=== PATIENT | female | born 1960 | race Caucasian/White ===

== ENCOUNTER → 2022-06-28 14:04 | Outpatient (BNVA) | payer BC, SELFPAY | PROVIDERS: PCP Physician Assistant; Visit Provider Student in an Organized Health Care Education/Training Program | DX: Z13.89 Encounter for screening for other disorder (principal) ==

== ENCOUNTER 2022-09-25 10:31 | Outpatient (REF) | payer BC, SELFPAY ==
--- NOTE | ~2022-09-25 | XR_ITS ---
EXAMINATION: XR SACROILIAC JOINTS CLINICAL INFORMATION: Low back pain. COMPARISON: None available. TECHNIQUE: 3 views of the sacroiliac joints FINDINGS: Advanced degenerative changes in the bilateral sacroiliac joints with joint space narrowing and hypertrophic change. Degenerative changes on limited views of the lower lumbar spine. Moderate degenerative changes in the bilateral hips with moderate lateral acetabular hypertrophic change/subjacent lucencies and joint space narrowing. Amorphous 1.3 cm sclerotic lesion projecting over the upper aspect of the right iliac wing, possibly a bone island, but of indeterminate etiology. XR/XR sacroiliac joint min 3V IMPRESSION: Advanced degenerative changes in the bilateral sacroiliac joints. Moderate degenerative changes on limited views of the bilateral hips could be evaluated with dedicated images. Amorphous 1.3 cm sclerotic lesion projecting over the upper aspect of the right iliac wing, possibly a bone island, but of indeterminate etiology. Additional imaging with CT scan or MRI should be considered for better visualization as these modalities are much more sensitive for detection of fracture or other underlying pathology.
== END 2022-09-25 10:32 | disposition home or self-care (01) ==
LOC: HO.XRAY 10:31
PROVIDERS: PCP Physician Assistant; Visit Provider Student in an Organized Health Care Education/Training Program
DX: M54.50 Low back pain, unspecified (principal); M06.9 Rheumatoid arthritis, unspecified; Z79.899 Other long term (current) drug therapy
CPT/HCPCS: 72202

== ENCOUNTER 2022-09-25 10:31 | Outpatient (AMB) | payer BC, SELFPAY ==
[2022-09-25 10:51] VITALS: BP 112/66; PULSE 75; TEMP 36.7; O2SAT 95; BMI 27.6
--- NOTE | 2022-09-25 10:51 | A.OFFVIS_ITS ---
Intake Vital Signs 09/25/22 10:51 Height 5 ft 6 in Weight 171 lb 1.259 oz BMI 27.6 BP 112/66 Blood Pressure Location Rt brachial Position Sitting Pulse 75 Pulse Source Pulse Oximeter Temp 98.1 F Temp Source Skin Pulse Oximetry (%) 95 Intake Visit Reasons: PsA Intake Note: Pt seen today for PsA follow up. C/o pain in multiple areas, pain wakes her up at night. 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: No Accompanied by: Self / Same As Patient Allergies No Known Allergies Allergy (Verified 09/25/22 10:52) Medication List - Last Reconciled 09/25/22 by Be Sewell MD albuterol sulfate 90 mcg/actuation (Ventolin HFA) 2 puffs inhalation Q4-6H PRN anastrozole 1 mg PO DAILY fluticasone propionate 220 mcg/actuation (Flovent HFA) 2 puffs inhalation BID folic acid 2 mg (2 x 1 mg) PO DAILY leucovorin calcium 20 mg PO QWEEK lidocaine-prilocaine 2.5-2.5 % grams topical DAILY methotrexate sodium 22.5 mg (9 x 2.5 mg) PO QWEEK prednisone 4 mg PO DAILY HPI HPI Comments History of Present Illness Details 62-year-old female with seronegative arthritis returns for follow-up. She completed radiation therapy for breast cancer 3 weeks ago. She continues to get Herceptin treatment every 3 weeks. She started methotrexate and leflunomide 3 months ago without much improvement. She continues to have diffuse pain. He has pain in her lower back and hips. Mostly at night and running rigger. She has 1-2 hours of morning stiffness in her back. She also has pain in her ankles and hands. She takes ibuprofen 1500 mg daily in the morning and 1500 mg some nights. Initial history: This is a 61-year-old female who presents for for evaluation of a seronegative arthritis. In December 2015 patient 20 the ER due to bilateral Achillis pain and swelling as well as difficulty breathing. She was ultimately evaluated by Pulmonary and had a bronchoscopy, she was diagnosed with BOOP and was advised to take prednisone 2-4 mg daily. She was then evaluated by Rheumatology and she has been on numerous DMARDs she was on Plaquenil which did not provide much relief, methotrexate which also was not very helpful as well as leflunomide. She was on Humira for 6 months without benefit. She was started on Orencia which gave her dramatic relief for about 9 months then it stopped helping. She was switched to Kevzara for 3 months without relief. Then restarted Orencia. She has been taking methotrexate, leflunomide, and Orencia until the end of 2021 when she was diagnosed with breast cancer. 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 She received 3 months of chemotherapy trastuzumab and paclitaxel. She stopped methotrexate and leflunomide since the beginning of the year but has been taking Orencia regularly. She will start radiation therapy to the left breast soon. Patient states that she has not had any swollen joints like in 2016. The majority of her pain is at night. The pain is in her feet, hands associated with morning stiffness of her hands lasting 2-3 hours. She states that ibuprofen helps the most. She takes around 1500 mg of ibuprofen daily which gives at least 70-80% relief. She does not have history of psoriasis. Her mother had psoriasis. There is no history suggestive of inflammatory bowel disease. There is no significant low back pain or stiffness. Per Dr. Brandon: Exam shows no synovitis.? Serology negative, normal inflammatory markers.? Upon reviewing records no synovitis was previously recorded.?? MRI foot did not show evidence of inflammatory arthropathy.?? Diagnosis initially based on findings of BOOP with suspicion of connection with rheumatoid arthritis [facility] Medical History BOOP (bronchiolitis obliterans with organizing pneumonia) Breast cancer, left Surgical History History of lumpectomy of left breast Family History Mother Vascular disorder Atherosclerosis Hypertension Father Bladder cancer Hypertension Diabetes mellitus Arthritis Family/Other Lupus Maternal Uncle Parkinson disease Social History Household Members: None Alcohol intake: current Patient Tobacco Use Status: Former Tobacco user e-Cigarette/Vaping Use: Never Used Current occupational status: employed Current occupation: works for the [employer] Review of Systems Const Reports fatigue and Reports weakness ENT Details: Mouth sores Card Reports no additional complaints Musc Reports arthralgias, Reports joint swelling and Reports stiffness Skin/Breast Reports alopecia Neuro Reports weakness Endo Reports fatigue Physical Exam Vital Signs: Last Vital Signs Temp 98.1 F 09/25/22 10:51 Pulse 75 09/25/22 10:51 BP 112/66 09/25/22 10:51 Pulse Ox 95 09/25/22 10:51 BMI result Body Mass Index 27.6 Const General: cooperative, healthy appearing and comfortable Nutritional Appearance: average body habitus Orientation/consciousness: patient oriented x3 Limitations: no limitations HEENT Head: Yes normocephalic and Yes atraumatic Mouth: moist mucous membranes Resp Effort & Inspection: normal respiratory effort and able to speak in complete sentences Auscultation: clear to auscultation bilaterally Cardio Rate: regular rate Rhythm: regular rhythm GI Inspection: No distended Palpation (GI): Soft to palpation and nontender Skin Other: Significant hair loss. Patient wearing a wig Neuro General: patient oriented x3 Extrem Other: No active synovitis. No swollen joints. Left 2nd PIP tenderness, Some nail ridging Some osteoarthritic changes with Heberden's nodes Love test 10-15 cm Normal lateral flexion test bilaterally Negative HONG test bilaterally Assessment & Plan Assessment & Plan (1) Rheumatoid arthritis: Comment: dx in 2016 based on( low titer +ve RF, bilateral Achilles tendinitis in combination with BOOP) Normal inflammatory markers Plaquenil, methotrexate, leflunomide did not provide much relief Humira for 6 months without relief Orencia initially provided dramatic relief then was not helping Kevzara for 3 months without relief Code(s): M06.9 - Rheumatoid arthritis, unspecified Qualifiers: Rheumatoid arthritis location: multiple sites Rheumatoid factor presence: unspecified presence Qualified Code(s): M06.9 - Rheumatoid arthritis, unspecified Plan: This is a 61-year-old female who presents for evaluation of a seronegative arthritis. Condition was diagnosed in 2016 when she presented with bilateral Achillis tendonitis and shortness of breath. She had the bronchoscopy and was ultimately diagnosed with blue. The diagnosis of rheumatoid arthritis was based on association with BOOP, apparently she also had a low titer positive rheumatoid factor. She failed numerous CsDMARDs. Humira was not effective. Orencia initially provided dramatic relief then stopped helping Kevzara not effective. Methotrexate and leflunomide were restarted 3 months ago without much i mprovement. Patient continues to have and pain and morning stiffness in her lower back and hips. Will check SI joint x-ray to evaluate for sacroiliitis. 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 Will monitor patient for side effects with frequent lab work. Advised patient to take folic acid daily to prevent compli cations of methotrexate. Plan I spent 29 minutes reviewing patient's chart, evaluating patient, ordering diagnostic workup, counseling patient and documenting in the chart Orders: Orders XR sacroiliac joint min 3V Today M54.50 - Low back pain, unspecified Coding Level of Care Code Est Pt Level 4 (36040) Diagnoses Rheumatoid arthritis M06.9 Rheumatoid arthritis location: multiple sites Rheumatoid factor presence: unspecified presence High risk medication use Z79.899
== END 2022-09-25 11:26 | disposition home or self-care (01) ==
PROVIDERS: PCP Physician Assistant; Visit Provider Student in an Organized Health Care Education/Training Program
DX: M06.9 Rheumatoid arthritis, unspecified (principal); Z79.899 Other long term (current) drug therapy
CPT/HCPCS: 99214

== ENCOUNTER 2022-10-15 09:03 | Outpatient (REF) | payer BC, SELFPAY ==
[2022-10-15 09:33] LABS: MANUAL DIFF FLAG NO
[2022-10-15 10:24] LABS: Basophils Absolute Auto 0.1 X10*3/uL (0.0-0.2); Basophils Percent Auto 0.7 % (0-2); Eosinophils Absolute Auto 0.1 X10*3/uL (0.0-0.4); Eosinophils Percent Auto 1.9 % (0-4); Hematocrit 40.3 % (37.0-47.0); Imm Gran Abs Auto 0.04 X10*3/uL (0.00-0.03); Imm Gran Pct Auto 0.5 % (0.0-0.4); Lymphocytes Absolute Auto 0.7 X10*3/uL (1.2-4.9); Lymphocytes Percent Auto 8.9 % (20-40); Mean Corpuscular HGB Conc 34.7 g/dl (31.0-35.0); Mean Corpuscular Hemoglobin 30.2 pg (27.0-33.0); Mean Corpuscular Volume 86.9 fL (80.0-98.0); Mean Platelet Volume 9.7 fL (9.4-12.3); Monocytes Absolute Auto 0.5 X10*3/uL (0.1-1.2); Monocytes Percent Auto 7.2 % (2-11); Neutrophils Absolute Auto 6.1 x10*3/uL (2.0-8.3); Neutrophils Percent Auto 80.8 % (45-73); Platelet Count 258 X10*3/uL (160-400); Red Blood Count 4.64 X10*6/uL (4.20-5.50); Red Cell Distribution Width 15.9 % (11.0-16.0); White Blood Count 7.5 X10*3/uL (4.8-10.8)
[2022-10-15 11:01] LABS: Erythrocyte Sedimentation Rate 7 MM/HR (0-20)
[2022-10-15 11:03] LABS: Alanine Aminotransferase 27 U/L (0-31); Albumin Level 4.3 g/dL (3.5-5.0); Alkaline Phosphatase 78 U/L (39-117); Anion Gap 15 (12-20); Aspartate Amino Transferase 19 U/L (5-31); Bilirubin Total 0.4 mg/dL (0.0-1.0); Blood Urea Nitrogen 18 mg/dL (9-16); C Reactive Protein 0.76 mg/dL (< or = 0.50); Calcium 9.4 mg/dL (8.4-10.2); Carbon Dioxide 21 mmol/L (22-29); Chloride 109 mmol/L (96-108); Estimated Glomerular Filt Rate > 60; Glucose Random 93 mg/dL (60-115); Potassium 4.4 mmol/L (3.3-5.1); Sodium 141 mmol/L (135-145); Total Protein 7.1 g/dL (6.5-8.0)
[2022-10-15 11:06] LABS: Rheumatoid Factor < 13.0 IU/mL (<15.0)
[2022-10-15 11:21] LABS: HBS Num1 0.43 mIU/mL (0-7.99); HBc Num1 0.14 S/CO (0.00-0.79); HBsAGNum1 0.36 S/CO (0.00-0.99); Hepatitis A Antibody IgM 0.25 Index (0-0.79); Hepatitis B Core Antibody Nonreactive (Nonreactive); Hepatitis B Surface Antigen Negative (Negative); ~HepC Num1 0.04 S/CO (0.00-0.79); ~Hepatitis A Antibody IgM Nonreactive (Nonreactive); ~Hepatitis B Surface Antibody NONREACTIVE (Nonreactive); ~Hepatitis C Antibody Nonreactive (Nonreactive)
[2022-10-17 15:28] LABS: TS Negative Control Passed; TS Panel A 0; TS Panel B 0; TS Positive Control Passed; TSpotTB Negative (Negative)
[2022-10-17 16:22] LABS: Cyclic Citrullinated Peptide <16 UNITS
== END 2022-10-15 09:04 | disposition home or self-care (01) ==
LOC: HO.LAB 09:03
PROVIDERS: PCP Physician Assistant; Visit Provider Student in an Organized Health Care Education/Training Program
DX: Z11.7 Encounter for testing for latent tuberculosis infection (principal); Z11.59 Encounter for screening for other viral diseases; Z72.89 Other problems related to lifestyle; M06.9 Rheumatoid arthritis, unspecified
CPT/HCPCS: 36415; 80053; 85025; 85652; 86140; 86200; 86431; 86481; 86704; 86706; 86709; 86803; 87340

== ENCOUNTER 2022-12-26 15:39 | Outpatient (AMB) | payer BC, SELFPAY ==
[2022-12-26 15:42] VITALS: BP 140/70; PULSE 78; TEMP 36.3; O2SAT 93; BMI 27.7
--- NOTE | 2022-12-26 15:42 | MHC.OFFVIS ---
Intake Vital Signs 12/26/22 15:42 Height 5 ft 6 in Weight 171 lb 8.314 oz BMI 27.7 BP 140/70 H Blood Pressure Location Rt brachial Position Sitting Pulse 78 Pulse Source Pulse Oximeter Temp 97.3 F Temp Source Skin Pulse Oximetry (%) 93 Oxygen Delivery Method Room Air Intake Visit Reasons: SpA Intake Note: Patient presents today to follow up on SpA. c/o right thumb pain x couple of weeks . 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: No Accompanied by: Self / Same As Patient Allergies No Known Allergies Allergy (Verified 12/26/22 15:42) Medication List - Last Reconciled 12/26/22 by Be Sewell MD albuterol sulfate 90 mcg/actuation (Ventolin HFA) 2 puffs inhalation Q4-6H PRN anastrozole 1 mg PO DAILY beclomethasone dipropionate 80 mcg/actuation (Qvar RediHaler) inhalation fluticasone propionate 220 mcg/actuation (Flovent HFA) 2 puffs inhalation BID folic acid 2 mg (2 x 1 mg) PO DAILY lidocaine-prilocaine 2.5-2.5 % grams topical DAILY methotrexate sodium 22.5 mg (9 x 2.5 mg) PO QWEEK HPI HPI Comments History of Present Illness Details 62-year-old female with seronegative arthritis returns for follow-up. She discontinued leflunomide last visit. Now on methotrexate 9 tabs weekly only. States that she feels about the same. Maybe a little worse. States that she gets swelling of her hands in the morning, recently she has been having right thumb pain and limited range of motion. Initial history: This is a 61-year-old female who presents for for evaluation of a seronegative arthritis. In December 2015 patient 20 the ER due to bilateral Achillis pain and swelling as well as difficulty breathing. She was ultimately evaluated by Pulmonary and had a bronchoscopy, she was diagnosed with BOOP and was advised to take prednisone 2-4 mg daily. She was then evaluated by Rheumatology and she has been on numerous DMARDs she was on Plaquenil which did not provide much relief, methotrexate which also was not very helpful as well as leflunomide. She was on Humira for 6 months without benefit. She was started on Orencia which gave her dramatic relief for about 9 months then it stopped helping. She was switched to Kevzara for 3 months without relief. Then restarted Orencia. She has been taking methotrexate, leflunomide, and Orencia until the end of 2021 when she was diagnosed with breast cancer. 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 She received 3 months of chemotherapy trastuzumab and paclitaxel. She stopped methotrexate and leflunomide since the beginning of the year but has been taking Orencia regularly. She will start radiation therapy to the left breast soon. Patient states that she has not had any swollen joints like in 2016. The majority of her pain is at night. The pain is in her feet, hands associated with morning stiffness of her hands lasting 2-3 hours. She states that ibuprofen helps the most. She takes around 1500 mg of ibuprofen daily which gives at least 70-80% relief. She does not have history of psoriasis. Her mother had psoriasis. There is no history suggestive of inflammatory bowel disease. There is no significant low back pain or stiffness. Per Dr. Brandon: Exam shows no synovitis.? Serology negative, normal inflammatory markers.? Upon reviewing records no synovitis was previously recorded.?? MRI foot did not show evidence of inflammatory arthropathy.?? Diagnosis initially based on findings of BOOP with suspicion of connection with rheumatoid arthritis [facility] Medical History BOOP (bronchiolitis obliterans with organizing pneumonia) Breast cancer, left Surgical History History of lumpectomy of left breast Family History Mother Vascular disorder Atherosclerosis Hypertension Father Bladder cancer Hypertension Diabetes mellitus Arthritis Family/Other Lupus Maternal Uncle Parkinson disease Social History Household Members: None Alcohol intake: current Patient Tobacco Use Status: Former Tobacco user e-Cigarette/Vaping Use: Never Used Current occupational status: employed Current occupation: works for the [employer] Review of Systems [facility] [place] arthralgias, Reports joint swelling, Reports limited range of motion and Reports stiffness Physical Exam Vital Signs: Last Vital Signs Temp 97.3 F 12/26/22 15:42 Pulse 78 10/18/23 15:42 BP 140/70 H 10/18/23 15:42 Pulse Ox 93 12/26/22 15:42 Oxygen Delivery Method Room Air 12/26/22 15:42 BMI result Body Mass Index 27.7 Const General: cooperative, healthy appearing and comfortable Nutritional Appearance: average body habitus Orientation/consciousness: patient oriented x3 Limitations: no limitations HEENT Head: Yes normocephalic and Yes atraumatic Mouth: moist mucous membranes Resp Effort & Inspection: normal respiratory effort and able to speak in complete sentences Neuro General: patient oriented x3 Extrem Other: Right 1st flexor tendon tenderness and limited range of motion of right thumb Some osteoarthritic changes with Heberden's nodes, few of them are tender Love test 10-15 cm Normal lateral flexion test bilaterally Negative HONG test bilaterally Office Procedures Tendon Injection Tendon Injection Details: The right palm was prepped with ChloraPrep and alcohol.? Under a topical ethyl chloride spray the [1st] flexor tendon sheath was injected with 20 mg of triamcinolone and 0.1 cc of 1% lidocaine.? The patient tolerated the procedure without any acute adverse effects. [id number] Tendon Sheath Injection All charges added?: Procedure code (CPT) selection complete Assessment & Plan Assessment & Plan (1) Rheumatoid arthritis: Comment: dx in 2016 based on( low titer +ve RF, bilateral Achilles tendinitis in combination with BOOP) Normal inflammatory markers Plaquenil, methotrexate, leflunomide did not provide much relief Humira for 6 months without relief Orencia initially provided dramatic relief then was not helping Kevzara for 3 months without relief MTX only since 09/2022 Code(s): M06.9 - Rheumatoid arthritis, unspecified Qualifiers: Rheumatoid arthritis location: multiple sites Rheumatoid factor presence: unspecified presence Qualified Code(s): M06.9 - Rheumatoid arthritis, unspecified Plan: This is a 62-year-old female who presents for evaluation of a seronegative arthritis. Condition was diagnosed in 2016 when she presented with bilateral Achillis tendonitis and shortness of breath. She had the bronchoscopy and was ultimately diagnosed with BOOP. The diagnosis of rheumatoid arthritis was based on association with BOOP, apparently she also had a low titer positive rheumatoid factor. She failed numerous CsDMARDs. Humira was not effective. Orencia initially provided dramatic relief for 9 months then stopped helping, Kevzara not effective. Patient was on methotrexate and leflunomide last visit, leflunomide was discontinued last visit and patient continues on methotrexate 22.5 mg weekly and folic acid 2 mg daily I do not see any active synovitis on exam today. She only has right thumb trigger finger which which is likely an overuse tendinitis rather than inflammatory tendinitis. Continue methotrexate 22.5 mg weekly and folic acid 2 mg daily Advised patient to take pictures of any swollen joints. And schedule her follow-up in the hospice care consultant Labs before next visit in 3 months (2) High risk medication use: Code(s): Z79.899 - Other skilled nursing (current) drug therapy Plan: Monitor safety labs (3) Trigger finger of right thumb: Code(s): M65.311 - Trigger thumb, right thumb Plan: Injected in clinic today. Advised patient to call the clinic in 1-2 weeks if no improvement and can consider referring her to Hand surgery for further evaluation Plan I spent 29 minutes reviewing patient's chart, evaluating patient, ordering diagnostic workup, counseling patient and documenting in the chart Orders: Orders AMB Injection-Tendon Today M65.311 - Trigger thumb, right thumb Complete Blood Count Auto Diff 3 Months M06.9 - Rheumatoid arthritis, unspecified Comprehensive Met. Panel 3 Months M06.9 - Rheumatoid arthritis, unspecified C Reactive Protein 3 Months M06.9 - Rheumatoid arthritis, unspecified Erythrocyte Sedimentation Rate 3 Months M06.9 - Rheumatoid arthritis, unspecified Coding Level of Care Code Est Pt Level 4 (18806) Diagnoses Rheumatoid arthritis involving multiple sites, unspecified whether rheumatoid factor present M06.9 Rheumatoid arthritis location: multiple sites Rheumatoid factor presence: unspecified presence High risk medication use Z79.899 Trigger finger of right thumb M65.311 CPT Codes Tendon Injection - Tendon Injection 1: [id number] Tendon Sheath Injection ([id number])
== END 2022-12-26 16:20 | disposition home or self-care (01) ==
PROVIDERS: PCP Physician Assistant; Visit Provider Student in an Organized Health Care Education/Training Program
DX: M06.9 Rheumatoid arthritis, unspecified (principal); Z79.899 Other long term (current) drug therapy; M65.311 Trigger thumb, right thumb
CPT/HCPCS: 20550; 99214

== ENCOUNTER → 2022-12-26 15:39 | Outpatient (BNVA) | payer BC, SELFPAY | PROVIDERS: PCP Physician Assistant; Visit Provider Student in an Organized Health Care Education/Training Program | DX: M06.00 Rheumatoid arthritis without rheumatoid factor, unspecified site (principal); M65.311 Trigger thumb, right thumb; Z79.899 Other long term (current) drug therapy | CPT/HCPCS: 20550; J3301 ==

== ENCOUNTER 2023-02-07 07:33 | Outpatient (AMB) | payer BC, SELFPAY ==
--- NOTE | 2023-02-07 07:54 | MHC.OFFVIS ---
Intake Vital Signs 02/07/23 07:55 Height 5 ft 6 in Weight 175 lb 4.28 oz BMI 28.3 BP 130/72 Blood Pressure Location Rt brachial Position Sitting Pulse 81 Pulse Source Pulse Oximeter Temp 97.9 F Temp Source Skin Pulse Oximetry (%) 98 Oxygen Delivery Method Room Air Intake Visit Reasons: Cortisone injection R thumb Intake Note: Pt presents today with thumb pain, requesting injection. 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 Allergies No Known Allergies Allergy (Verified 12/26/22 15:42) Medication List - Last Reconciled 02/07/23 by Be Sewell MD albuterol sulfate 90 mcg/actuation (Ventolin HFA) 2 puffs inhalation Q4-6H PRN anastrozole 1 mg PO DAILY beclomethasone dipropionate 80 mcg/actuation (Qvar RediHaler) inhalation fluticasone propionate 220 mcg/actuation (Flovent HFA) 2 puffs inhalation BID folic acid 2 mg (2 x 1 mg) PO DAILY lidocaine-prilocaine 2.5-2.5 % grams topical DAILY methotrexate sodium 22.5 mg (9 x 2.5 mg) PO QWEEK HPI HPI Comments History of Present Illness Details 62-year-old female with seronegative arthritis returns for follow-up. She received right thumb trigger finger injection last visit. She states that it worked quite well almost immediately. Today she is requesting trigger finger injection for the left thumb. Initial history: This is a 61-year-old female who presents for for evaluation of a seronegative arthritis. In December 2015 patient 20 the ER due to bilateral Achillis pain and swelling as well as difficulty breathing. She was ultimately evaluated by Pulmonary and had a bronchoscopy, she was diagnosed with BOOP and was advised to take prednisone 2-4 mg daily. She was then evaluated by Rheumatology and she has been on numerous DMARDs she was on Plaquenil which did not provide much relief, methotrexate which also was not very helpful as well as leflunomide. She was on Humira for 6 months without benefit. She was started on Orencia which gave her dramatic relief for about 9 months then it stopped helping. She was switched to Kevzara for 3 months without relief. Then restarted Orencia. She has been taking methotrexate, leflunomide, and Orencia until the end of 2021 when she was diagnosed with breast cancer. 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 She received 3 months of chemotherapy trastuzumab and paclitaxel. She stopped methotrexate and leflunomide since the beginning of the year but has been taking Orencia regularly. She will start radiation therapy to the left breast soon. Patient states that she has not had any swollen joints like in 2016. The majority of her pain is at night. The pain is in her feet, hands associated with morning stiffness of her hands lasting 2-3 hours. She states that ibuprofen helps the most. She takes around 1500 mg of ibuprofen daily which gives at least 70-80% relief. She does not have history of psoriasis. Her mother had psoriasis. There is no history suggestive of inflammatory bowel disease. There is no significant low back pain or stiffness. Per Dr. Brandon: Exam shows no synovitis.? Serology negative, normal inflammatory markers.? Upon reviewing records no synovitis was previously recorded.?? MRI foot did not show evidence of inflammatory arthropathy.?? Diagnosis initially based on findings of BOOP with suspicion of connection with rheumatoid arthritis [facility] Medical History BOOP (bronchiolitis obliterans with organizing pneumonia) Breast cancer, left Surgical History History of lumpectomy of left breast Family History Mother Vascular disorder Atherosclerosis Hypertension Father Bladder cancer Hypertension Diabetes mellitus Arthritis Family/Other Lupus Maternal Uncle Parkinson disease Social History Household Members: None Alcohol intake: current Patient Tobacco Use Status: Former Tobacco user e-Cigarette/Vaping Use: Never Used Current occupational status: employed Current occupation: works for the [employer] Review of Systems [facility] [place] Reports arthralgias, Reports limited range of motion and Reports stiffness Physical Exam Vital Signs: Last Vital Signs Temp 97.9 F 02/07/23 07:55 Pulse 81 02/07/23 07:55 BP 130/72 02/07/23 07:55 Pulse Ox 98 02/07/23 07:55 Oxygen Delivery Method Room Air 02/07/23 07:55 BMI result Body Mass Index 28.3 Const General: cooperative, healthy appearing and comfortable Nutritional Appearance: average body habitus Orientation/consciousness: patient oriented x3 Limitations: no limitations HEENT Head: Yes normocephalic and Yes atraumatic Resp Effort & Inspection: normal respiratory effort and able to speak in complete sentences Neuro General: patient oriented x3 Extrem Other: left 1st flexor tendon tenderness and limited range of motion of right thumb Some osteoarthritic changes with Heberden's nodes, few of them are tender Office Procedures Tendon Injection Tendon Injection Details: The palm of the left hand was prepped with ChloraPrep and alcohol. Under topical ethyl chloride spray the [1st] flexor tendon sheath was injected with 20 mg of triamcinolone and 0.2 cc of 1% lidocaine. The patient tolerated the procedure without any acute complications. [id number] Tendon Sheath Injection All charges added?: Procedure code (CPT) selection complete Assessment & Plan Assessment & Plan (1) Trigger finger of right thumb: Code(s): M65.311 - Trigger thumb, right thumb Plan: Injected 12/2022 with good results. Injections can be repeated as needed (2) Trigger finger of left thumb: Code(s): M65.312 - Trigger thumb, left thumb Plan: With patient's consent, left thumb trigger finger was injected in clinic. Injections can be repeated as needed Plan I spent 15 minutes reviewing patient's chart, evaluating patient, counseling patient and documenting in the chart Orders: Orders AMB Injection-Tendon Today M65.312 - Trigger thumb, left thumb Coding Level of Care Code Est Pt Level 3 (87495) Diagnoses Trigger finger of right thumb M65.311 Trigger finger of left thumb M65.312 CPT Codes Tendon Injection - Tendon Injection 1: [id number] Tendon Sheath Injection ([id number])
[2023-02-07 07:55] VITALS: BP 130/72; PULSE 81; TEMP 36.6; O2SAT 98; BMI 28.3
== END 2023-02-07 10:45 | disposition home or self-care (01) ==
PROVIDERS: PCP Physician Assistant; Visit Provider Student in an Organized Health Care Education/Training Program
DX: M65.311 Trigger thumb, right thumb (principal); M65.312 Trigger thumb, left thumb
CPT/HCPCS: 20550; 99213

== ENCOUNTER → 2023-02-07 07:33 | Outpatient (BNVA) | payer BC, SELFPAY | PROVIDERS: PCP Physician Assistant; Visit Provider Student in an Organized Health Care Education/Training Program | DX: M65.312 Trigger thumb, left thumb (principal); M65.311 Trigger thumb, right thumb | CPT/HCPCS: 20550; J3301 ==

== ENCOUNTER 2023-03-23 09:03 | Outpatient (REF) | payer BC, SELFPAY ==
[2023-03-23 09:19] LABS: MANUAL DIFF FLAG NO
[2023-03-23 09:27] LABS: Basophils Absolute Auto 0.1 X10*3/uL (0.0-0.2); Basophils Percent Auto 0.5 % (0-2); Eosinophils Absolute Auto 0.1 X10*3/uL (0.0-0.4); Eosinophils Percent Auto 1.1 % (0-4); Hematocrit 42.9 % (37.0-47.0); Hemoglobin 14.2 g/dl (12.0-16.0); Imm Gran Abs Auto 0.07 X10*3/uL (0.00-0.03); Imm Gran Pct Auto 0.6 % (0.0-0.4); Lymphocytes Absolute Auto 0.7 X10*3/uL (1.2-4.9); Lymphocytes Percent Auto 5.6 % (20-40); Mean Corpuscular HGB Conc 33.1 g/dl (31.0-35.0); Mean Corpuscular Hemoglobin 28.6 pg (27.0-33.0); Mean Corpuscular Volume 86.3 fL (80.0-98.0); Mean Platelet Volume 9.3 fL (9.4-12.3); Monocytes Absolute Auto 0.7 X10*3/uL (0.1-1.2); Monocytes Percent Auto 5.5 % (2-11); Neutrophils Absolute Auto 10.6 x10*3/uL (2.0-8.3); Neutrophils Percent Auto 86.7 % (45-73); Platelet Count 279 X10*3/uL (160-400); Red Blood Count 4.97 X10*6/uL (4.20-5.50); Red Cell Distribution Width 14.1 % (11.0-16.0); White Blood Count 12.3 X10*3/uL (4.8-10.8)
[2023-03-23 10:05] LABS: Alanine Aminotransferase 30 U/L (0-31); Albumin Level 4.3 g/dL (3.5-5.0); Alkaline Phosphatase 79 U/L (39-117); Anion Gap 13 (12-20); Aspartate Amino Transferase 21 U/L (5-31); Bilirubin Total 0.3 mg/dL (0.0-1.0); Blood Urea Nitrogen 20 mg/dL (9-16); C Reactive Protein 0.43 mg/dL (< or = 0.50); Calcium 9.7 mg/dL (8.4-10.2); Carbon Dioxide 25 mmol/L (22-29); Chloride 106 mmol/L (96-108); Estimated Glomerular Filt Rate > 60; Glucose Random 93 mg/dL (60-115); Potassium 4.7 mmol/L (3.3-5.1); Sodium 139 mmol/L (135-145); Total Protein 7.2 g/dL (6.5-8.0)
[2023-03-23 10:20] LABS: Erythrocyte Sedimentation Rate 6 MM/HR (0-20)
== END 2023-03-23 09:04 | disposition home or self-care (01) ==
LOC: HO.LAB 09:03
PROVIDERS: Visit Provider Student in an Organized Health Care Education/Training Program
DX: M06.9 Rheumatoid arthritis, unspecified (principal)
CPT/HCPCS: 36415; 80053; 85025; 85652; 86140

== ENCOUNTER 2023-04-02 07:32 | Outpatient (AMB) | payer BC, SELFPAY ==
[2023-04-02 07:35] VITALS: BP 126/80; PULSE 76; TEMP 36.3; O2SAT 96; BMI 28.5
--- NOTE | 2023-04-02 07:35 | A.OFFVIS_ITS ---
Intake Vital Signs 04/02/23 07:35 Height 5 ft 6 in Weight 176 lb 12.972 oz BMI 28.5 BP 126/80 Blood Pressure Location Rt brachial Position Sitting Pulse 76 Pulse Source Pulse Oximeter Temp 97.3 F Temp Source Skin Pulse Oximetry (%) 96 Oxygen Delivery Method Room Air Intake Visit Reasons: RA Intake Note: Patient last seen 02/07/23 presents today for follow up. Last took mtx late January; c/o morning stiffness and pain in the whole body, keeping her from going to the gym. 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 Required: No Accompanied by: Self / Same As Patient Allergies No Known Allergies Allergy (Verified 04/02/23 07:39) Medication List - Last Reconciled 04/02/23 by Be Sewell MD albuterol sulfate 90 mcg/actuation (Ventolin HFA) 2 puffs inhalation Q4-6H PRN anastrozole 1 mg PO DAILY beclomethasone dipropionate 80 mcg/actuation (Qvar RediHaler) inhalation fluticasone propionate 220 mcg/actuation (Flovent HFA) 2 puffs inhalation BID folic acid 2 mg (2 x 1 mg) PO DAILY lidocaine-prilocaine 2.5-2.5 % grams topical DAILY HPI HPI Comments History of Present Illness Details 62-year-old female with seronegative art hritis returns for follow-up. She received left thumb trigger finger injection last visit. She states that it worked quite well almost immediately. She discontinued methotrexate since last visit. Did not notice a difference when she stopped it. Continues to have generalized joint pain and stiffness in the morning especially her hands, elbows, neck, lower back and knees. That stiffness lasts 1-2 hours. Improved with ibuprofen 800 mg daily. Increased joint pain and stiffness when sitting down for a while then getting up. Initial history: This is a 61-year-old female who presents for for evaluation of a seronegative arthritis. In December 2015 patient 20 the ER due to bilateral Achillis pain and swelling as well as difficulty breathing. She was ultimately evaluated by Pulmonary and had a bronchoscopy, she was diagnosed with BOOP and was advised to take prednisone 2-4 mg daily. She was then evaluated by Rheumatology and she has been on numerous DMARDs she was on Plaquenil which did not provide much relief, methotrexate which also was not very helpful as well as leflunomide. She was on Humira for 6 months without benefit. She was started on Orencia which gave her dramatic relief for about 9 months then it stopped helping. She was switched to Kevzara for 3 months without relief. Then restarted Orencia. She has been taking methotrexate, leflunomide, and Orencia until the end of 2021 when she was diagnosed with breast cancer. 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 She received 3 months of chemotherapy trastuzumab and paclitaxel. She stopped methotrexate and leflunomide since the beginning of the year but has been taking Orencia regularly. She will start radiation therapy to the left breast soon. Patient states that she has not had any swollen joints like in 2016. The majority of her pain is at night. The pain is in her feet, hands associated with morning stiffness of her hands lasting 2-3 hours. She states that ibuprofen helps the most. She takes around 1500 mg of ibuprofen daily which gives at least 70-80% relief. She does not have history of psoriasis. Her mother had psoriasis. There is no history suggestive of inflammatory bowel disease. There is no significant low back pain or stiffness. Per Dr. Brandon: Exam shows no synovitis.? Serology negative, normal inflammatory markers.? Upon reviewing records no synovitis was previously recorded.?? MRI foot did not show evidence of inflammatory arthropathy.?? Diagnosis initially based on findings of BOOP with suspicion of connection with rheumatoid arthritis [facility] Medical History BOOP (bronchiolitis obliterans with organizing pneumonia) Breast cancer, left Surgical History History of lumpectomy of left breast Family History Mother Vascular disorder Atherosclerosis Hypertension Father Bladder cancer Hypertension Diabetes mellitus Arthritis Family/Other Lupus Maternal Uncle Parkinson disease Social History Household Members: None Alcohol intake: current Patient Tobacco Use Status: Former Tobacco user e-Cigarette/Vaping Use: Never Used Current occupational status: employed Current occupation: works for the [employer] Review of Systems [facility] Reports arthralgias, Reports limited range of motion and Reports stiffness Physical Exam Vital Signs: Last Vital Signs Temp 97.3 F 04/02/23 07:35 Pulse 76 04/02/23 07:35 BP 126/80 04/02/23 07:35 Pulse Ox 96 04/02/23 07:35 Oxygen Delivery Method Room Air 04/02/23 07:35 BMI result Body Mass Index 28.5 Const General: cooperative, healthy appearing and comfortable Nutritional Appearance: average body habitus Orientation/consciousness: patient oriented x3 Limitations: no limitations HEENT Head: Yes normocephalic and Yes atraumatic Resp Effort & Inspection: normal respiratory effort and able to speak in complete sentences Auscultation: clear to auscultation bilaterally Cardio Rate: regular rate Rhythm: regular rhythm Heart sounds: S1 normal heart sound present and S2 normal heart sound present GI Inspection: No distended Palpation (GI): Soft to palpation and nontender Skin General skin exam: no rashes or lesions noted Neuro General: patient oriented x3 Extrem Other: Osteoarthritic changes of both hands with no active synovitis Right 2nd flexor tendon tenderness No triggering of her fingers bilaterally No swollen joints noticed Bilateral knee crepitus Love test 10-15.5 cm Normal lateral flexion test bilaterally Assessment & Plan Assessment & Plan (1) Rheumatoid arthritis: Comment: dx in 2015 based on( low titer +ve RF, bilateral Achilles tendinitis in combination with BOOP) Normal inflammatory markers Plaquenil, methotrexate, leflunomide did not provide much relief Humira for 6 months without relief Orencia initially provided dramatic relief then was not helping Kevzara for 3 months without relief MTX only since 09/2022 self DC 01/2023 due to lack of efficacy Code(s): M06.9 - Rheumatoid arthritis, unspecified Qualifiers: Rheumatoid arthritis location: multiple sites Rheumatoid factor presence: unspecified presence Qualified Code(s): M06.9 - Rheumatoid arthritis, unspecified Plan: This is a 62-year-old female who presents for evaluation of a seronegative arthritis. Condition was diagnosed in 2016 when she presented with bilateral Achillis tendonitis and shortness of breath. She had the bronchoscopy and was ultimately diagnosed with BOOP. The diagnosis of rheumatoid arthritis was based on association with BOOP, apparently she also had a low titer positive rheumatoid factor. She failed numerous CsDMARDs. Humira was not effective. Orencia initially provided dramatic relief for 9 months then stopped helping, Kevzara not effective. Patient self discontinued methotrexate last visit as she felt it did not provide much relief. She continues to be symptomatic with generalized joint pain and stiffness, worse in the morning I do not see any active synovitis on exam today. Can continue to watch patient off DMARDs Follow-up in six-months (2) Trigger finger of right thumb: Code(s): M65.311 - Trigger thumb, right thumb Plan: Injected 12/2022 with good results. Injections can be repeated as needed (3) Trigger finger of left thumb: Code(s): M65.312 - Trigger thumb, left thumb Plan: Injected in clinic 01/2023 with good results. Injections can be repeated as needed Plan I spent 29 minutes reviewing patient's chart, evaluating patient, counseling patient and documenting in the chart Coding Level of Care Code Est Pt Level 4 (44757) Diagnoses Rheumatoid arthritis involving multiple sites, unspecified whether rheumatoid factor present M06.9 Rheumatoid arthritis location: multiple sites Rheumatoid factor presence: unspecified presence Trigger finger of right thumb M65.311 Trigger finger of left thumb M65.312
== END 2023-04-02 08:03 | disposition home or self-care (01) ==
PROVIDERS: PCP Physician Assistant; Visit Provider Student in an Organized Health Care Education/Training Program
DX: M06.9 Rheumatoid arthritis, unspecified (principal); M65.311 Trigger thumb, right thumb; M65.312 Trigger thumb, left thumb
CPT/HCPCS: 99214

== ENCOUNTER → 2023-04-02 07:32 | Outpatient (BNVA) | payer BC, SELFPAY | PROVIDERS: PCP Physician Assistant; Visit Provider Student in an Organized Health Care Education/Training Program ==

== ENCOUNTER 2023-10-01 07:29 | Outpatient (AMB) | payer BC, SELFPAY ==
--- NOTE | 2023-10-01 07:34 | MHC.OFFVIS ---
Vital Signs 10/01/23 07:36 Height 5 ft 6 in Weight 176 lb 5.917 oz BMI 28.5 BP 140/76 H Blood Pressure Location Rt brachial Position Sitting Pulse 70 Pulse Source Pulse Oximeter Pulse Oximetry (%) 97 Oxygen Delivery Method Room Air Intake Visit Reasons: RA/CM Intake Note: Patient last seen on 04/02/23 presents today for follow up. Insurance Instructor Required: No Accompanied by: Self / Same As Patient Allergies No Known Allergies Allergy (Verified 10/01/23 07:40) Medication List - Last Reconciled 10/01/23 by Be Sewell MD albuterol sulfate 90 mcg/actuation (Ventolin HFA) 2 puffs inhalation Q4-6H PRN anastrozole 1 mg PO DAILY beclomethasone dipropionate 80 mcg/actuation (Qvar RediHaler) inhalation duloxetine 30 mg PO DAILY exemestane 25 mg PO DAILY fluticasone propionate 220 mcg/actuation (Flovent HFA) 2 puffs inhalation BID folic acid 2 mg (2 x 1 mg) PO DAILY lidocaine-prilocaine 2.5-2.5 % grams topical DAILY HPI Comments Details: 63-year-old female previously diagnosed with seronegative arthritis returns for follow-up. She has been off all DMARDs since last visit. She states that she continues to have joint pain including her shoulders, lower back, hips, hands, especially at night. She takes 5 x 200 mg ibuprofen nightly. Initial history: This is a 61-year-old female who presents for for evaluation of a seronegative arthritis. In December 2015 patient 20 the ER due to bilateral Achillis pain and swelling as well as difficulty breathing. She was ultimately evaluated by Pulmonary and had a bronchoscopy, she was diagnosed with BOOP and was advised to take prednisone 2-4 mg daily. She was then evaluated by Rheumatology and she has been on numerous DMARDs she was on Plaquenil which did not provide much relief, methotrexate which also was not very helpful as well as leflunomide. She was on Humira for 6 months without benefit. She was started on Orencia which gave her dramatic relief for about 9 months then it stopped helping. She was switched to Kevzara for 3 months without relief. Then restarted Orencia. She has been taking methotrexate, leflunomide, and Orencia until the end of 2021 when she was diagnosed with breast cancer. 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 She received 3 months of chemotherapy trastuzumab and paclitaxel. She stopped methotrexate and leflunomide since the beginning of the year but has been taking Orencia regularly. She will start radiation therapy to the left breast soon. Patient states that she has not had any swollen joints like in 2016. The majority of her pain is at night. The pain is in her feet, hands associated with morning stiffness of her hands lasting 2-3 hours. She states that ibuprofen helps the most. She takes around 1500 mg of ibuprofen daily which gives at least 70-80% relief. She does not have history of psoriasis. Her mother had psoriasis. There is no history suggestive of inflammatory bowel disease. There is no significant low back pain or stiffness. Per Dr. Brandon: Exam shows no synovitis.? Serology negative, normal inflammatory markers.? Upon reviewing records no synovitis was previously recorded.?? MRI foot did not show evidence of inflammatory arthropathy.?? Diagnosis initially based on findings of BOOP with suspicion of connection with rheumatoid arthritis [facility] Medical History (Updated 10/01/23 @ 08:03 by Be Sewell MD) Rheumatoid arthritis BOOP (bronchiolitis obliterans with organizing pneumonia) Breast cancer, left Surgical History History of lumpectomy of left breast Family History Mother Vascular disorder Atherosclerosis Hypertension Father Bladder cancer Hypertension Diabetes mellitus Arthritis Family/Other Lupus Maternal Uncle Parkinson disease Social History Household Members: None Alcohol intake: current Patient Tobacco Use Status: Former Tobacco user e-Cigarette/Vaping Use: Never Used Current occupational status: employed Current occupation: works for the [employer] [place] Female Reproductive History Menstrual Total pregnancies: 0 Review of Systems [facility] Reports arthralgias, Reports limited range of motion and Reports stiffness Physical Exam Vital Signs: Last Vital Signs Pulse 70 10/01/23 07:36 BP 140/76 H 10/01/23 07:36 Pulse Ox 97 10/01/23 07:36 Oxygen Delivery Method Room Air 10/01/23 07:36 BMI result Body Mass Index 28.5 Const General: cooperative, healthy appearing and comfortable Nutritional Appearance: average body habitus Orientation/consciousness: patient oriented x3 Limitations: no limitations HEENT Head: Yes normocephalic and Yes atraumatic Resp Effort & Inspection: normal respiratory effort and able to speak in complete sentences Cardio Rate: regular rate Rhythm: regular rhythm Skin General skin exam: no rashes or lesions noted Neuro General: patient oriented x3 Extrem Other: Osteoarthritic changes of both hands with no active synovitis No triggering of her fingers bilaterally today No swollen joints noticed Bilateral knee crepitus Negative straight leg raise test bilaterally Negative Fabere test bilaterally Love test 10-15.5 cm Normal lateral flexion test bilaterally Negative MTP squeeze test bilaterally Assessment & Plan Assessment & Plan (1) Seronegative arthritis: Comment: dx in 2015 based on( low titer +ve RF, bilateral Achilles tendinitis in combination with BOOP) Normal inflammatory markers Plaquenil, methotrexate, leflunomide did not provide much relief Humira for 6 months without relief Orencia initially provided dramatic relief then was not helping Kevzara for 3 months without relief MTX only since 09/2022 self DC 01/2023 due to lack of efficacy Code(s): M13.80 - Other specified arthritis, unspecified site Category: Medical Plan: This is a 63-year-old female who presents for evaluation of a seronegative arthritis.? Condition was diagnosed in 2015 when she presented with bilateral Achillis tendonitis and shortness of breath.? She had the bronchoscopy and was ultimately diagnosed with BOOP.? The diagnosis of rheumatoid arthritis was based on association with BOOP, apparently she also had a low titer positive rheumatoid factor.? She failed numerous CsDMARDs.? Humira was not effective. Orencia initially provided dramatic relief for 9 months then stopped helping, Kevzara not effective.? Patient has been off all DMARDs since about 01/2023 with no worsening of symptoms. Upon evaluation I do not see any active synovitis. No swollen joints on exam. Clinical picture at this time is rather consistent with generalized osteoarthritis. Follow-up with me as needed. Patient will consider another opinion Plan I spent 17 minutes reviewing patient's chart, evaluating patient, counseling patient and documenting in the chart Coding Level of Care Code Est Pt Level 3 (54886) Diagnoses Seronegative arthritis M13.80
[2023-10-01 07:36] VITALS: BP 140/76; PULSE 70; O2SAT 97; BMI 28.5
== END 2023-10-01 07:59 | disposition home or self-care (01) ==
PROVIDERS: PCP Physician Assistant; Visit Provider Student in an Organized Health Care Education/Training Program
DX: M13.80 Other specified arthritis, unspecified site (principal)
CPT/HCPCS: 99213

== ENCOUNTER → 2023-10-01 07:29 | Outpatient (BNVA) | payer BC, SELFPAY | PROVIDERS: PCP Physician Assistant; Visit Provider Student in an Organized Health Care Education/Training Program ==